=== PATIENT | female | born 1995 ===

== ENCOUNTER 2017-01-08 21:28 | Emergency (ER) | payer MEDICAID ==
[2017-01-08 21:45] VITALS: BP 125/78; PULSE 88; RESP 20; TEMP 98.2; O2SAT 99
--- NOTE | 2017-01-08 23:27 | ED PDOC ---
HPI: Back Time Seen by Provider: 01/08/17 21:57 Chief Complaint (Nursing): Back Pain Chief Complaint (Provider): Left lower back pain x 2 days History Per: Patient History/Exam Limitations: no limitations Onset/Duration Of Symptoms: Days Current Symptoms Are (Timing): Still Present Quality Of Discomfort: Sharp (with movement ), Dull Additional Complaint(s): Pt states it gradually began after livnig heavy object. Pt states she took motrin yesterday which helped the pain. PT states she was going to take more today but her mother brought her to the Er for evaluation. No numbness/ tingling. No bladder or bowel incontinence. No fever/chills. Past Medical History Vital Signs: Last Vital Signs Temp 98.2 F 01/08/17 21:40 Pulse 88 01/08/17 21:40 Resp 20 01/08/17 21:40 BP 125/78 01/08/17 21:40 Pulse Ox 99 01/08/17 21:40 - Medical History PMH: Asthma - Surgical History Surgical History: Appendectomy - Family History Family History: States: Unknown Family Hx - Living Arrangements Living Arrangements: With Family - Social History Current smoker - smoking cessation education provided: No Alcohol: None Drugs: Denies - Home Medications Home Medications: Ambulatory Orders Medication Instructions Recorded Montelukast Sodium [Singulair] 10 mg PO DAILY #20 tab 02/28/13 predniSONE [predniSONE Tab] 20 mg PO BID #10 tab 02/28/13 Naproxen [Naprosyn Tab] 375 mg PO Q8 PRN #15 tab 04/15/16 oxyCODONE/Acetaminophen [Percocet 1 ea PO Q6 PRN #4 tab 04/15/16 5/325 mg Tab] Nitrofurantoin Macrocrystals 100 mg PO BID #13 cap 05/17/16 [Macrobid] Phenazopyridine [Pyridium] 200 mg PO TID #5 tab 05/17/16 Cyclobenzaprine [Cyclobenzaprine 10 mg PO Q8H PRN #12 tab 01/08/17 HCl] Ibuprofen [Motrin Tab] 800 mg PO Q6H PRN #20 tab 01/08/17 - Allergies Allergies/Adverse Reactions: Allergies Allergy/AdvReac Type Severity Reaction Status Date / Time FISH Allergy RASH Verified 01/08/17 21:40 Review of Systems ROS Statement: Except As Marked, All Systems Reviewed And Found Negative Constitutional: Negative for: Fever, Chills Gastrointestinal: Negative for: Nausea, Vomiting Genitourinary Female: Negative for: Dysuria Physical Exam - Reviewed Nursing Documentation Reviewed: Yes Vital Signs Reviewed: Yes - Physical Exam Appears: Positive for: Well, Non-toxic, No Acute Distress Head Exam: Positive for: ATRAUMATIC, NORMAL INSPECTION, NORMOCEPHALIC Skin: Positive for: Normal Color, Warm, DRY Eye Exam: Positive for: Normal appearance ENT: Positive for: Normal ENT Inspection Neck: Positive for: Normal, Painless ROM Cardiovascular/Chest: Positive for: Regular Rate, Rhythm Respiratory: Positive for: Normal Breath Sounds. Negative for: Accessory Muscle Use, Respiratory Distress Gastrointestinal/Abdominal: Positive for: Normal Exam, Bowel Sounds, Soft. Negative for: Tenderness Back: Positive for: Normal Inspection Extremity: Positive for: Normal ROM Neurologic/Psych: Positive for: Alert, Oriented - ECG O2 Sat by Pulse Oximetry: 99 Medical Decision Making Medical Decision Making: Pt reports feeling better on re-evaluation. Disposition - Clinical Impression Clinical Impression: Back pain - Patient ED Disposition Is Patient to be Admitted: No Counseled Patient/Family Regarding: Diagnosis, Need For Followup, Rx Given - Disposition Disposition: Routine/Home Disposition Time: 23:27 Condition: GOOD Prescriptions: Cyclobenzaprine [Cyclobenzaprine HCl] 10 mg PO Q8H PRN #12 tab PRN Reason: Muscle Spasm Ibuprofen [Motrin Tab] 800 mg PO Q6H PRN #20 tab PRN Reason: Pain Instructions: Acute Low Back Pain (ED) Forms: [employer] (Hungarian)
== END 2017-01-08 23:43 | disposition home or self-care (01) ==
LOC: H.ER 21:28
DX: M54.5 Low back pain (principal)

== ENCOUNTER 2017-02-25 00:23 | Emergency (ER) | payer MEDICAID ==
[2017-02-25 00:38] VITALS: TEMP 98.9; O2SAT 100
[2017-02-25] MEDS ORDERED: Sodium Chloride 0.9% 1,000 ML IV STA (01:29)
--- NOTE | 2017-02-25 01:32 | ED PDOC ---
HPI: Abdomen Time Seen by Provider: 02/25/17 00:39 Chief Complaint (Nursing): Abdominal Pain Chief Complaint (Provider): Abdominal Pain History Per: Patient History/Exam Limitations: no limitations Onset/Duration Of Symptoms: Hrs (x5) Current Symptoms Are (Timing): Still Present Context: Food Additional Complaint(s): Bonnie is a 21 y/o female who presents to the ED complaining of abdominal pain associated with diarrhea, onset this evening. She reports eating sausages around 9:30PM and developed symptoms shortly thereafter. Patient denies nausea, vomiting, dysuria, frequency, and incontinence. She describes the diarrhea as watery, without mucus or blood. PMD: None Past Medical History Reviewed: Historical Data, Nursing Documentation, Vital Signs Vital Signs: Last Vital Signs Temp 98.9 F 02/25/17 00:35 Pulse 91 H 02/25/17 01:24 Resp 16 02/25/17 01:24 BP 124/76 02/25/17 01:54 Pulse Ox 100 02/25/17 03:44 - Medical History PMH: Asthma - Surgical History Surgical History: Appendectomy - Family History Family History: States: Unknown Family Hx - Home Medications Home Medications: Ambulatory Orders Medication Instructions Recorded Montelukast Sodium [Singulair] 10 mg PO DAILY #20 tab 02/28/13 predniSONE [predniSONE Tab] 20 mg PO BID #10 tab 02/28/13 Naproxen [Naprosyn Tab] 375 mg PO Q8 PRN #15 tab 04/15/16 oxyCODONE/Acetaminophen [Percocet 1 ea PO Q6 PRN #4 tab 04/15/16 5/325 mg Tab] Nitrofurantoin Macrocrystals 100 mg PO BID #13 cap 05/17/16 [Macrobid] Phenazopyridine [Pyridium] 200 mg PO TID #5 tab 05/17/16 Cyclobenzaprine [Cyclobenzaprine 10 mg PO Q8H PRN #12 tab 01/08/17 HCl] Ibuprofen [Motrin Tab] 800 mg PO Q6H PRN #20 tab 01/08/17 Dicyclomine [Dicyclomine HCl] 10 mg PO TID PRN #15 cap 02/25/17 - Allergies Allergies/Adverse Reactions: Allergies Allergy/AdvReac Type Severity Reaction Status Date / Time FISH Allergy RASH Verified 02/25/17 00:35 Review of Systems ROS Statement: Except As Marked, All Systems Reviewed And Found Negative Gastrointestinal: Positive for: Abdominal Pain, Diarrhea. Negative for: Nausea , Vomiting Genitourinary Female: Negative for: Dysuria, Frequency, Incontinence Physical Exam - Reviewed Nursing Documentation Reviewed: Yes Vital Signs Reviewed: Yes - Physical Exam Appears: Positive for: Non-toxic, No Acute Distress Head Exam: Positive for: ATRAUMATIC, NORMAL INSPECTION, NORMOCEPHALIC Skin: Positive for: Normal Color, Warm, Dry Eye Exam: Positive for: EOMI, Normal appearance, PERRL Neck: Positive for: Normal, Supple Cardiovascular/Chest: Positive for: Tachycardia. Negative for: Murmur Respiratory: Positive for: Normal Breath Sounds. Negative for: Accessory Muscle Use, Respiratory Distress Gastrointestinal/Abdominal: Positive for: Soft, Tenderness (umbilical and lower abdominal tenderness to palpation) Extremity: Positive for: Normal ROM. Negative for: Pedal Edema, Deformity Neurologic/Psych: Positive for: Alert, Oriented - Laboratory Results Result Diagrams: 02/25/17 01:51 02/25/17 01:51 - ECG O2 Sat by Pulse Oximetry: 100 (RA) Pulse Ox Interpretation: Normal Medical Decision Making Medical Decision Making: Time: 1:27 Initial Plan: --CMP --Lipase --CBC --Urine dipstick --NS IV 1000 ml at 1000 mls/hr --Bentyl 10 mg PO --Zofran 4 mg IV --Pending reevaluation Time: 3:41 --Upon reevaluation, patient reports marked improvement in symptoms. She has no diarrhea or pain in the ED. Patient is medically stable and will be discharged home with a prescription for dicyclomine. Counseling was provided and all questions were answered regarding diagnosis and need for follow up with PMD in 2-3 days. There is agreement to discharge plan. Return if symptoms persist or worsen. Clinical Impression: Diarrhea, abdominal pain Scribe Attestation: Documented by Charis Dean, acting as a scribe for Marc Díaz MD Provider Scribe Attestation: All medical record entries made by the Scribe were at my direction and personally dictated by me. I have reviewed the chart and agree that the record accurately reflects my personal performance of the history, physical exam, medical decision making, and the department course for this patient. I have also personally directed, reviewed, and agree with the discharge instructions and disposition. Disposition - Clinical Impression Clinical Impression: Abdominal pain, Diarrhea - Patient ED Disposition Is Patient to be Admitted: No Doctor Will See Patient In The: Office Counseled Patient/Family Regarding: Studies Performed, Diagnosis, Need For Followup, Rx Given - Disposition Referrals: [facility] [Outside] Disposition: Routine/Home Disposition Time: 03:42 Condition: GOOD Additional Instructions: Return for worsening. Follow up with your PCP in 2-3 days. Prescriptions: Dicyclomine [Dicyclomine HCl] 10 mg PO TID PRN #15 cap PRN Reason: Diarrhea Instructions: Acute Diarrhea (ED), Abdominal Pain (ED)
[2017-02-25 01:53] VITALS: PULSE 91; RESP 16
[2017-02-25 01:54] VITALS: BP 124/76
[2017-02-25 01:54] LABS: BASO # 0.1 K/uL (0.0-0.2); BASO % 0.5 % (0.0-2.0); EOS # 0.1 K/uL (0.0-0.7); EOS % 0.5 % (0.0-4.0); HEMATOCRIT 41.1 % (34.0-47.0); LYMPH # 3.1 K/uL (1.0-4.3); LYMPH % 27.6 % (20.0-40.0); MEAN CELL VOLUME 87.3 fl (81.0-99.0); MEAN CORPUSCULAR HEMOGLOBIN 28.8 pg (27.0-31.0); MEAN CORPUSCULAR HGB CONC 32.9 g/dL (33.0-37.0); MEAN PLATELET VOLUME 8.6 fl (7.2-11.7); MONO # 0.9 K/uL (0.0-0.8); MONO % 7.6 % (0.0-10.0); NEUT # 7.2 K/uL (1.8-7.0); NEUT % 63.8 % (50.0-75.0); RED CELL DISTRIBUTION WIDTH 13.2 % (11.5-14.5); WHITE BLOOD COUNT 11.2 K/uL (4.8-10.8)
[2017-02-25 02:02] LABS: ALB/GLOB RATIO 1.3 (1.0-2.1); ALKALINE PHOSPHATASE 113 U/L (38-126); ALT/SGPT 22 U/L (9-52); AST/SGOT 21 U/L (14-36); BILIRUBIN,TOTAL 0.4 mg/dl (0.2-1.3); BLOOD UREA NITROGEN 12 mg/dl (7-17); CALCIUM 9.7 mg/dL (8.4-10.2); CARBON DIOXIDE 25 mmol/L (22-30); CHLORIDE 102 mmol/L (98-107); GFR AFRICAN-AMERICAN > 60; GLUCOSE,RANDOM 107 mg/dL (65-105); LIPASE 112 U/L (23-300); POTASSIUM 3.8 MMOL/L (3.6-5.0); SODIUM 144 mmol/l (132-148); TOTAL PROTEIN 7.7 G/DL (6.3-8.2)
== END 2017-02-25 03:55 | disposition home or self-care (01) ==
LOC: H.ER 00:23
DX: R10.9 Unspecified abdominal pain (principal); R19.7 Diarrhea, unspecified
CPT/HCPCS: 80053; 81025; 83690; 85025; 96360; 99283; J7040

== ENCOUNTER 2017-10-14 02:35 | Emergency (ER) | payer MEDICAID ==
[2017-10-14 02:47] VITALS: TEMP 97.9
--- NOTE | 2017-10-14 02:52 | ED PDOC ---
HPI: CCC, URI, Sore Throat <Luis Enrique Hernandez - Last Filed: 10/14/17 04:20> <Simon Shields - Last Filed: 10/14/17 04:34> Chief Complaint (Nursing): ENT Problem Additional Complaint(s): 22 yo female who presents to the ED complaining of bilateral ear pain since 2 days ago associated with runny nose and watery eyes. Patient states URI symptoms and fever last week, reports mom and dad are also sick. Patient also reports some decreased hearing L side worse than right. Otherwise patient denies fever at this time, nausea, vomiting, no otorrhea, ringing. No recent injury on trauma on ears. (Luis Enrique Hernandez) Supervising Attending Note - Supervising Attending Note The Documented history was done by the: Physician Shift Production Associate - Attestation: I have personally seen and examined this patient.: Yes I have fully participated in the care of the patient.: Yes I have reviewed all pertinent clinical information, including history, physical exam and plan: Yes <Simon Shields - Last Filed: 10/14/17 04:34> Past Medical History - Medical History PMH: Asthma - Surgical History Surgical History: Appendectomy - Family History Family History: States: Unknown Family Hx <Luis Enrique Hernandez - Last Filed: 10/14/17 04:20> <Simon Shields - Last Filed: 10/14/17 04:34> Vital Signs: Last Vital Signs Temp 97.9 F 10/14/17 04:21 Pulse 68 10/14/17 04:21 Resp 14 10/14/17 04:21 BP 131/62 10/14/17 04:21 Pulse Ox 99 10/14/17 04:21 - Home Medications Home Medications: Ambulatory Orders Medication Instructions Recorded Montelukast Sodium [Singulair] 10 mg PO DAILY #20 tab 02/28/13 predniSONE [predniSONE Tab] 20 mg PO BID #10 tab 02/28/13 Naproxen [Naprosyn Tab] 375 mg PO Q8 PRN #15 tab 04/15/16 oxyCODONE/Acetaminophen [Percocet 1 ea PO Q6 PRN #4 tab 04/15/16 5/325 mg Tab] Nitrofurantoin Macrocrystals 100 mg PO BID #13 cap 05/17/16 [Macrobid] Phenazopyridine [Pyridium] 200 mg PO TID #5 tab 05/17/16 Cyclobenzaprine [Cyclobenzaprine 10 mg PO Q8H PRN #12 tab 01/08/17 HCl] Ibuprofen [Motrin Tab] 800 mg PO Q6H PRN #20 tab 01/08/17 Dicyclomine [Dicyclomine HCl] 10 mg PO TID PRN #15 cap 02/25/17 Amoxicillin [Amoxil 500 mg Cap] 500 mg PO Q8 5 Days #15 cap 10/14/17 - Allergies Allergies/Adverse Reactions: Allergies Allergy/AdvReac Type Severity Reaction Status Date / Time pollen extracts Allergy ITCHING Verified 10/14/17 02:47 Review of Systems ROS Statement: Except As Marked, All Systems Reviewed And Found Negative <Luis Enrique Hernandez - Last Filed: 10/14/17 04:20> Physical Exam - Reviewed Nursing Documentation Reviewed: Yes Vital Signs Reviewed: Yes - Physical Exam Head Exam: Positive for: NORMAL INSPECTION Eye Exam: Positive for: Normal appearance ENT: Positive for: TM Is/Are (R TM ray, bulging, L dificult to visualize lot of wax). Negative for: Pharyngeal Erythema, Tonsillar Exudate, Tonsillar Swelling Neck: Positive for: Supple (No LAD.) Cardiovascular/Chest: Positive for: Regular Rate, Rhythm. Negative for: Murmur Respiratory: Positive for: Normal Breath Sounds. Negative for: Rhonchi, Wheezing Gastrointestinal/Abdominal: Positive for: Normal Exam Neurologic/Psych: Positive for: Alert, electric mule operator II-XII, Oriented <Luis Enrique Hernandez - Last Filed: 10/14/17 04:20> - ECG O2 Sat by Pulse Oximetry: 98 <Luis Enrique Hernandez - Last Filed: 10/14/17 04:20> <Simon Shields - Last Filed: 10/14/17 04:34> - Progress ED Course And Treament: Toradol 30mg IM Influenza serology Rapid strept test Reeval. 0345: patient feels better. Influenza negative Rapid strep negative. Dispo d/c home. (Luis Enrique Hernandez) Disposition - Patient ED Disposition Is Patient to be Admitted: No - Disposition Disposition: Routine/Home Disposition Time: 03:26 <Luis Enrique Hernandez - Last Filed: 10/14/17 04:20> <Simon Shields - Last Filed: 10/14/17 04:34> - Clinical Impression Clinical Impression: Otitis media - Disposition Condition: STABLE Additional Instructions: f/u with PCP in 2-3 days. ER precautions reviewed. Amoxicilin 500 mg PO q8h x 5 days. Avoid alcohol during treatment Prescriptions: Amoxicillin [Amoxil 500 mg Cap] 500 mg PO Q8 5 Days #15 cap Instructions: Ear Infections (Otitis Media) Forms: [facility] (Zambian) Print Language: SERBIAN
[2017-10-14 04:22] VITALS: BP 131/62; PULSE 68; RESP 14; O2SAT 99
== END 2017-10-14 04:26 | disposition home or self-care (01) ==
LOC: H.ER 02:35
DX: H66.90 Otitis media, unspecified, unspecified ear (principal); J45.909 Unspecified asthma, uncomplicated
CPT/HCPCS: 81025; 87070; 87430; 87804; 96372; 99283; J1885

== ENCOUNTER 2018-01-02 23:12 | Emergency (ER) | payer MEDICAID ==
[2018-01-02 23:28] VITALS: O2SAT 100
--- NOTE | 2018-01-03 01:01 | ED PDOC ---
HPI: General Adult Time Seen by Provider: 01/03/18 00:28 Chief Complaint (Nursing): Medical Clearance Chief Complaint (Provider): insomnia History Per: Patient History/Exam Limitations: no limitations Onset/Duration Of Symptoms: Days (2) Additional Complaint(s): 22 y/o female presents for evaluation of insomnia x 2 days. Patient states she will fall asleep for an hour and then wake up. Patient tearful, states she has a lot of stressors at home and is in a "bad" relationship. Patient also reports decreased appetite and states since she hasn't slept she also has body pain, none at present. Denies fever, headache, dizziness, nausea/vomiting, chest pain, shortness of breath, palpitations, abdominal pain, suicidal/ homicidal ideations. Past Medical History Vital Signs: Last Vital Signs Temp 98.1 F 01/02/18 23:26 Pulse 70 01/02/18 23:26 Resp 17 01/02/18 23:26 BP 127/85 01/02/18 23:26 Pulse Ox 100 01/03/18 01:01 - Medical History PMH: Asthma - Surgical History Surgical History: Appendectomy - Family History Family History: States: Unknown Family Hx - Living Arrangements Living Arrangements: With Family - Social History Current smoker - smoking cessation education provided: No Alcohol: None Drugs: Denies - Home Medications Home Medications: Ambulatory Orders Medication Instructions Recorded Montelukast Sodium [Singulair] 10 mg PO DAILY #20 tab 02/28/13 predniSONE [predniSONE Tab] 20 mg PO BID #10 tab 02/28/13 Naproxen [Naprosyn Tab] 375 mg PO Q8 PRN #15 tab 04/15/16 oxyCODONE/Acetaminophen [Percocet 1 ea PO Q6 PRN #4 tab 04/15/16 5/325 mg Tab] Nitrofurantoin Macrocrystals 100 mg PO BID #13 cap 05/17/16 [Macrobid] Phenazopyridine [Pyridium] 200 mg PO TID #5 tab 05/17/16 Cyclobenzaprine [Cyclobenzaprine 10 mg PO Q8H PRN #12 tab 01/08/17 HCl] Ibuprofen [Motrin Tab] 800 mg PO Q6H PRN #20 tab 01/08/17 Dicyclomine [Dicyclomine HCl] 10 mg PO TID PRN #15 cap 10/01/17 Amoxicillin [Amoxil 500 mg Cap] 500 mg PO Q8 5 Days #15 cap 10/14/17 - Allergies Allergies/Adverse Reactions: Allergies Allergy/AdvReac Type Severity Reaction Status Date / Time pollen extracts Allergy ITCHING Verified 10/14/17 02:47 Review of Systems ROS Statement: Except As Marked, All Systems Reviewed And Found Negative Psych: Positive for: Other (insomnia) Physical Exam - Reviewed Nursing Documentation Reviewed: Yes Vital Signs Reviewed: Yes - Physical Exam Appears: Positive for: Well, Non-toxic, Uncomfortable (tearful) Head Exam: Positive for: ATRAUMATIC, NORMAL INSPECTION, NORMOCEPHALIC Skin: Positive for: Normal Color Eye Exam: Positive for: Normal appearance ENT: Positive for: Normal ENT Inspection Cardiovascular/Chest: Positive for: Regular Rate, Rhythm Respiratory: Positive for: Normal Breath Sounds Gastrointestinal/Abdominal: Positive for: Normal Exam Back: Positive for: Normal Inspection Extremity: Positive for: Normal ROM Neurologic/Psych: Positive for: Alert, Oriented (x3) - ECG O2 Sat by Pulse Oximetry: 100 - Progress ED Course And Treament: Patient evaluated by general lithographic worker; does not meet criteria for admission at this time Information for outpatient services given Advised patient trial Benadryl, Melatonin for symptoms Follow up outpatient therapy Return precautions given Disposition - Clinical Impression Clinical Impression: Adjustment disorder with depressed mood, Lack of adequate sleep - Patient ED Disposition Is Patient to be Admitted: No Counseled Patient/Family Regarding: Diagnosis, Need For Followup - Disposition Disposition: Routine/Home Disposition Time: 01:30 Condition: STABLE Instructions: Adjustment Disorder, Insomnia
[2018-01-03 02:07] VITALS: BP 122/79; PULSE 81; RESP 16; TEMP 98
== END 2018-01-03 01:50 | disposition home or self-care (01) ==
LOC: H.ER 23:12
DX: F43.21 Adjustment disorder with depressed mood (principal); Z72.820 Sleep deprivation

== ENCOUNTER 2018-02-07 00:31 | Emergency (ER) | payer MEDICAID ==
[2018-02-07 00:46] VITALS: RESP 18
[2018-02-07] MEDS ORDERED: Promethazine/Cod 6.25mg-10mg/5ml Syr UD PO STA (01:09)
--- NOTE | 2018-02-07 01:22 | ED PDOC ---
HPI: CCC, URI, Sore Throat Time Seen by Provider: 02/07/18 00:51 Chief Complaint (Nursing): ENT Problem Chief Complaint (Provider): right ear pain and sore throat History Per: Patient History/Exam Limitations: no limitations Onset/Duration Of Symptoms: Days (x1) Current Symptoms Are (Timing): Still Present Location Of Pain: Ear(s) (Right), Throat Associated Symptoms: Sore Throat, Cough. denies: Fever, Chills, Nausea, Vomiting Ear Symptoms: Right: Ear Pain Additional Complaint(s): Sandra Abel is a 22 year old female, with no significant past medical history, who presents to the emergency department complaining of right ear pain and sore throat ongoing for x1 day. Patient states she took NyQuil yesterday afternoon with no relief of symptoms. She also reports a cough but denies any nausea, vomit, shortness of breath, fever or chills. No further medical complaints. PMD: Radha Quinteros Past Medical History Reviewed: Historical Data, Nursing Documentation, Vital Signs Vital Signs: Last Vital Signs Temp 98.2 F 02/07/18 00:43 Pulse 80 02/07/18 00:43 Resp 18 02/07/18 00:43 BP 124/81 02/07/18 00:43 Pulse Ox 99 02/07/18 02:34 - Medical History PMH: Asthma Denies: Diabetes, Hepatitis, HIV, HTN, Seizures, Sexually Transmitted Disease - Surgical History Surgical History: Appendectomy - Family History Family History: States: Unknown Family Hx - Social History Current smoker - smoking cessation education provided: No Alcohol: None Drugs: Denies - Home Medications Home Medications: Ambulatory Orders Medication Instructions Recorded Montelukast Sodium [Singulair] 10 mg PO DAILY #20 tab 02/28/13 predniSONE [predniSONE Tab] 20 mg PO BID #10 tab 02/28/13 Naproxen [Naprosyn Tab] 375 mg PO Q8 PRN #15 tab 04/15/16 oxyCODONE/Acetaminophen [Percocet 1 ea PO Q6 PRN #4 tab 04/15/16 5/325 mg Tab] Nitrofurantoin Macrocrystals 100 mg PO BID #13 cap 05/17/16 [Macrobid] Phenazopyridine [Pyridium] 200 mg PO TID #5 tab 05/17/16 Cyclobenzaprine [Cyclobenzaprine 10 mg PO Q8H PRN #12 tab 01/08/17 HCl] Ibuprofen [Motrin Tab] 800 mg PO Q6H PRN #20 tab 01/08/17 Dicyclomine [Dicyclomine HCl] 10 mg PO TID PRN #15 cap 02/25/17 Amoxicillin [Amoxil 500 mg Cap] 500 mg PO Q8 5 Days #15 cap 10/14/17 Benzonatate [Tessalon Perle] 100 mg PO TID PRN #15 capsule 02/07/18 - Allergies Allergies/Adverse Reactions: Allergies Allergy/AdvReac Type Severity Reaction Status Date / Time pollen extracts Allergy ITCHING Verified 10/14/17 02:47 Review of Systems ROS Statement: Except As Marked, All Systems Reviewed And Found Negative Constitutional: Negative for: Fever, Chills ENT: Positive for: Ear Pain (right), Throat Pain Respiratory: Positive for: Cough. Negative for: Shortness of Breath Gastrointestinal: Negative for: Nausea, Vomiting Physical Exam - Reviewed Nursing Documentation Reviewed: Yes Vital Signs Reviewed: Yes - Physical Exam Appears: Positive for: Uncomfortable Head Exam: Positive for: ATRAUMATIC, NORMAL INSPECTION, NORMOCEPHALIC Skin: Positive for: Normal Color, Warm, Dry Eye Exam: Positive for: Normal appearance, EOMI, PERRL ENT: Positive for: Pharynx Is (erythematous), TM Is/Are (normal bilaterally) Neck: Positive for: Painless ROM Cardiovascular/Chest: Positive for: Regular Rate, Rhythm. Negative for: Murmur Respiratory: Positive for: Normal Breath Sounds. Negative for: Respiratory Distress Gastrointestinal/Abdominal: Positive for: Normal Exam, Soft. Negative for: Tenderness Back: Positive for: Normal Inspection Extremity: Positive for: Normal ROM (upper and lower extremities). Negative for : Deformity, Swelling Neurologic/Psych: Positive for: Alert, Oriented - ECG O2 Sat by Pulse Oximetry: 99 (RA) Pulse Ox Interpretation: Normal Medical Decision Making Medical Decision Making: Time: 00:51 Initial Impression: 22 y/o female with pharyngitis. Initial Plan: --Urine --Urine dipstick --Promethazine/Codeine 10 ml PO --Influenza A B --Rapid Strep Group A Antigen --Reevaluation 02:25 -Fu and strep negative. 02:30 -Patient reports improvement of symptoms and is medically stable for discharge. Diagnosis of viral pharyngitis. Patient will be discharged home with Rx for Benzonatate PO. Counseling was provided and all questions were answered regarding diagnosis and need for follow up with PMD. There is agreement to discharge plan. Return if symptoms persist or worsen. ----- Scribe Attestation: Documented by Danis Hsieh, acting as a scribe for Simon Shields MD. Provider Scribe Attestation: All medical record entries made by the Scribe were at my direction and personally dictated by me. I have reviewed the chart and agree that the record accurately reflects my personal performance of the history, physical exam, medical decision making, and the department course for this patient. I have also personally directed, reviewed, and agree with the discharge instructions and disposition. Disposition - Clinical Impression Clinical Impression: Pharyngitis - Disposition Referrals: Radha Irby MD [Primary Care Provider] - Disposition: Routine/Home Disposition Time: 02:30 Condition: STABLE Additional Instructions: SANDRA ABEL, thank you for letting us take care of you today. Your provider was Simon Shields MD and you were treated for FEVER, RIGHT EAR PAIN. The emergency medical care you received today was directed at your acute symptoms. If you were prescribed any medication, please fill it and take as directed. It may take several days for your symptoms to resolve. Return to the Emergency Department if your symptoms worsen, do not improve, or if you have any other problems. Please contact your doctor or call one of the physicians/clinics you have been referred to that are listed on the Patient Visit Information form that is included in your discharge packet. Bring any paperwork you were given at discharge with you along with any medications you are taking to your follow up visit. Our treatment cannot replace ongoing medical care by a primary care provider outside of the emergency department. Thank you for allowing the [facility] team to be part of your care today. If you had a blood, urine, or wound culture: It will take several days for the results, if any change in treatment is needed we will contact you. Prescriptions: Benzonatate [Tessalon Perle] 100 mg PO TID PRN #15 capsule PRN Reason: Cough Instructions: Viral Pharyngitis Forms: [employer] (Czech), [facility] ED School/Work Excuse
[2018-02-07] MEDS ORDERED: Promethazine/Cod 6.25mg-10mg/5ml Syr UD ONE (01:30)
[2018-02-07 02:41] VITALS: BP 127/55; PULSE 77; TEMP 98; O2SAT 100
== END 2018-02-07 02:42 | disposition home or self-care (01) ==
LOC: H.ER 00:31
DX: J02.9 Acute pharyngitis, unspecified (principal); H92.01 Otalgia, right ear; R05 Cough

== ENCOUNTER 2018-08-26 11:15 | Emergency (ER) | payer MEDICAID ==
--- NOTE | 2018-08-26 13:41 | ED PDOC ---
HPI: Abdomen Time Seen by Provider: 08/26/18 13:00 Chief Complaint (Provider): Abdominal pain History Per: Patient History/Exam Limitations: no limitations Onset/Duration Of Symptoms: Days, Gradual, Worse Since (yesterday) Current Symptoms Are (Timing): Still Present Location Of Pain/Discomfort: RUQ, RLQ Quality Of Discomfort: "Pain" Associated Symptoms: Nausea. denies: Fever, Chills, Vomiting, Diarrhea, Back Pain, Chest Pain, Urinary Symptoms Additional History Per: Patient Additional Complaint(s): 22yo female, otherwise well, comes to ER reporting right sided abdominal pain, worse since last night. She states she tripped and fell 3 days ago, and landed flat on her stomach. She reports the pain has been present since then, was improving, but then worsened last night, prompting ER visit. She reports associated nausea and states the pain is worse with walking. She denies any head injury, urinary symptoms, back pain, chest pain, or other complaints. PMD: Dr. Irby Abnormal Vaginal Bleeding: No Last Menstral Period: 3 weeks ago Past Medical History Reviewed: Historical Data, Nursing Documentation, Vital Signs - Medical History PMH: Asthma Denies: Diabetes, Hepatitis, HIV, HTN, Seizures, Sexually Transmitted Disease - Surgical History Surgical History: Appendectomy - Family History Family History: States: Unknown Family Hx - Home Medications Home Medications: Ambulatory Orders Medication Instructions Recorded Montelukast Sodium [Singulair] 10 mg PO DAILY #20 tab 02/28/13 predniSONE [predniSONE Tab] 20 mg PO BID #10 tab 02/28/13 Naproxen [Naprosyn Tab] 375 mg PO Q8 PRN #15 tab 04/15/16 oxyCODONE/Acetaminophen [Percocet 1 ea PO Q6 PRN #4 tab 04/15/16 5/325 mg Tab] Nitrofurantoin Macrocrystals 100 mg PO BID #13 cap 05/17/16 [Macrobid] Phenazopyridine [Pyridium] 200 mg PO TID #5 tab 05/17/16 Cyclobenzaprine [Cyclobenzaprine 10 mg PO Q8H PRN #12 tab 01/08/17 HCl] Ibuprofen [Motrin Tab] 800 mg PO Q6H PRN #20 tab 01/08/17 Dicyclomine [Dicyclomine HCl] 10 mg PO TID PRN #15 cap 02/25/17 Amoxicillin [Amoxil 500 mg Cap] 500 mg PO Q8 5 Days #15 cap 10/14/17 Benzonatate [Tessalon Perle] 100 mg PO TID PRN #15 capsule 02/07/18 Ibuprofen [Ibu] 400 mg PO Q4 PRN #20 tablet 08/26/18 - Allergies Allergies/Adverse Reactions: Allergies Allergy/AdvReac Type Severity Reaction Status Date / Time pollen extracts Allergy ITCHING Verified 10/14/17 02:47 Review of Systems ROS Statement: Except As Marked, All Systems Reviewed And Found Negative Constitutional: Negative for: Fever, Chills Cardiovascular: Negative for: Chest Pain Gastrointestinal: Positive for: Nausea, Abdominal Pain. Negative for: Vomiting, Diarrhea Genitourinary Female: Negative for: Dysuria, Frequency, Hematuria Musculoskeletal: Negative for: Back Pain Physical Exam - Reviewed Nursing Documentation Reviewed: Yes Vital Signs Reviewed: Yes - Physical Exam Comments: GENERAL APPEARANCE: Patient is awake, alert, oriented x 3, in mild painful distress. SKIN: Warm, dry; (-) cyanosis. HEAD: atraumatic EYES: (-) conjunctival pallor, (-) scleral icterus. ENMT: Mucous membranes moist. NECK: (-) tenderness, (-) stiffness, (-) lymphadenopathy. CHEST AND RESPIRATORY: (-) rales, (-) rhonchi, (-) wheezes; breath sounds equal bilaterally. HEART AND CARDIOVASCULAR: (-) irregularity; (-) murmur, (-) gallop. ABDOMEN AND GI: (-) distention. Bowel sounds active; [+] tenderness in mid right abdomen (-) guarding, (-) rebound, (-) palpable masses (-)ecchymosis Linear scar noted to right lower quadrant. BACK: (-) CVA tenderness. (-) Midline spinal tenderness. (-) Paraspinal tenderness. (+) Full ROM of back EXTREMITIES: (-) deformity, (-) edema, (+) distal pulses (-)reproducible tenderness NEURO AND PSYCH: Mental status as above; (-) focal findings. - Laboratory Results Result Diagrams: 08/26/18 14:00 08/26/18 14:00 Medical Decision Making Medical Decision Making: Right sided abdominal pain Plan: -- Labs -- CT Abdomen/Pelvis w/ IV Contrast 1632 CT Abdomen/Pelvis FINDINGS: LOWER THORAX: Unremarkable. LIVER: Unremarkable. No gross lesion or ductal dilatation. GALLBLADDER AND BILE DUCTS: Unremarkable. PANCREAS: Unremarkable. No gross lesion or ductal dilatation. SPLEEN: Unremarkable. ADRENALS: Unremarkable. No mass. KIDNEYS AND URETERS: Unremarkable. No hydronephrosis. No solid mass. VASCULATURE: Unremarkable. No aortic aneurysm. No aortic atherosclerotic calcification or mural plaque present. BOWEL: Unremarkable. No obstruction. No gross mural thickening. APPENDIX: The appendix not identified and surgical clip is seen at the cecal base suggesting prior appendectomy. Clinically correlate. PERITONEUM: Unremarkable. No free fluid. No free air. LYMPH NODES: Unremarkable. No enlarged lymph nodes. BLADDER: Unremarkable. REPRODUCTIVE: In the interval, there is a 3.3 cm right adnexal cyst with the left adnexal compartment unremarkable appearing. BONES: No acute fracture. OTHER FINDINGS: None. IMPRESSION: 1. Both posttraumatic sequelae appreciated in the abdomen or pelvis. No fracture identified. No hemoperitoneum. 2. Mild hepatic steatosis suggested. 3. Interval 3.3 cm right adnexal cyst. 4. Likely prior appendectomy. Clinically correlate. On reassessment, patient reports some improvement in pain. abdomen is soft and non tender. Patient informed of CT findings and expresses understanding. Patient is stable for discharge home, instructed to take Motrin/Tylenol as needed for pain. Patient instructed to follow up with PMD in 2-3 days; return precautions given. Scribe Attestation: Documented by Esme Gibbs, acting as a scribe for CARLOS Clement. Provider Scribe Attestation: All medical record entries made by the Scribe were at my direction and personally dictated by me. I have reviewed the chart and agree that the record accurately reflects my personal performance of the history, physical exam, medical decision making, and the department course for this patient. I have also personally directed, reviewed, and agree with the discharge instructions and disposition. Disposition - Clinical Impression Clinical Impression: Abdominal tenderness, Fall from slip, trip, or stumble, Cyst of ovary, right - Patient ED Disposition Is Patient to be Admitted: No Counseled Patient/Family Regarding: Studies Performed, Diagnosis, Need For Followup, Rx Given - Disposition Referrals: Radha Irby MD [Primary Care Provider] - Disposition: Routine/Home Disposition Time: 16:34 Condition: IMPROVED Additional Instructions: Return to ED for new or worsening symptoms, fever >100.4, increasing pain, urinary symptoms, vomiting. FOllow up with your primary care doctor in 3-5 days. Take medications as prescribed Prescriptions: Ibuprofen [Ibu] 400 mg PO Q4 PRN #20 tablet PRN Reason: Pain, Moderate (4-7) Instructions: Ovarian Cysts, Acute Abdomen (Belly Pain), Adult (DC) Forms: [employer] (Telugu), [facility] ED School/Work Excuse Print Language: CROATIAN - POA Present On Arrival: None
[2018-08-26 14:30] VITALS: BMI 28.9
[2018-08-26 14:36] LABS: BASO # 0.1 K/uL (0.0-0.2); EOS % 0.7 % (0.0-4.0); HEMOGLOBIN 13.7 g/dL (12.0-16.0); LYMPH # 2.2 K/uL (1.0-4.3); LYMPH % 43.6 % (20.0-40.0); MEAN CELL VOLUME 89.3 fl (81.0-99.0); MEAN CORPUSCULAR HEMOGLOBIN 29.9 pg (27.0-31.0); MEAN CORPUSCULAR HGB CONC 33.5 g/dL (33.0-37.0); MEAN PLATELET VOLUME 8.3 fl (7.2-11.7); MONO # 0.3 K/uL (0.0-0.8); NEUT # 2.5 K/uL (1.8-7.0); NEUT % 48.7 % (50.0-75.0); NRBC % 0.1 % (0.0-0.0); RBC 4.59 Mil/uL (3.80-5.20); RED CELL DISTRIBUTION WIDTH 13.2 % (11.5-14.5); WHITE BLOOD COUNT 5.1 K/uL (4.8-10.8)
[2018-08-26 14:44] LABS: ALB/GLOB RATIO 1.2 (1.0-2.1); ALBUMIN 4.4 g/dL (3.5-5.0); ALT/SGPT 18 U/L (9-52); AST/SGOT 27 U/L (14-36); BLOOD UREA NITROGEN 14 mg/dl (7-17); CALCIUM 9.7 mg/dL (8.4-10.2); GFR NON-AFRICAN AMERICAN > 60
[2018-08-26 14:51] LABS: SQUAMOUS EPITHIAL 9 /hpf (0-5); URINE AMORPHOUS SEDIMENT MANY /ul (<OCC); URINE BACTERIA RARE (<OCC); URINE BILIRUBIN NEGATIVE (NEGATIVE); URINE BLOOD NEGATIVE (NEGATIVE); URINE CLARITY TURBID (Clear); URINE COLOR YELLOW (YELLOW); URINE GLUCOSE (UA) NEG (NEGATIVE); URINE LEUKOCYTE ESTERASE NEG Leu/uL (Negative); URINE PROTEIN 30 mg/dL (NEGATIVE); URINE UROBILINOGEN 0.2-1.0 mg/dL (0.2-1.0)
[2018-08-26] MEDS ORDERED: Iohexol 300 100 ML IJ ONE (15:28)
[2018-08-26] MEDS ORDERED: Sodium Chloride 0.9% 50 ML IV ONE (15:29)
--- NOTE | 2018-08-26 16:16 | CT ---
Date of service: 08/26/2018 PROCEDURE: CT Abdomen and Pelvis with contrast HISTORY: trauma COMPARISON: Transvaginal pelvic ultrasound 06/16/2017. TECHNIQUE: Following the intravenous administration of iodinated contrast material, a CT examination of the abdomen and pelvis was performed from the domes of the diaphragms to the symphysis pubis with reformatted datasets provided in axial, sagittal and coronal planes. Oral contrast was not administered as per referring physician request. Contrast dose: Omnipaque 300, 90 cc Radiation dose: Total exam DLP = 538.36 mGy-cm. This CT exam was performed using one or more of the following dose reduction techniques: Automated exposure control, adjustment of the mA and/or kV according to patient size, and/or use of iterative reconstruction technique. FINDINGS: LOWER THORAX: Unremarkable. LIVER: Unremarkable. No gross lesion or ductal dilatation. GALLBLADDER AND BILE DUCTS: Unremarkable. PANCREAS: Unremarkable. No gross lesion or ductal dilatation. SPLEEN: Unremarkable. ADRENALS: Unremarkable. No mass. KIDNEYS AND URETERS: Unremarkable. No hydronephrosis. No solid mass. VASCULATURE: Unremarkable. No aortic aneurysm. No aortic atherosclerotic calcification or mural plaque present. BOWEL: Unremarkable. No obstruction. No gross mural thickening. APPENDIX: The appendix not identified and surgical clip is seen at the cecal base suggesting prior appendectomy. Clinically correlate. PERITONEUM: Unremarkable. No free fluid. No free air. LYMPH NODES: Unremarkable. No enlarged lymph nodes. BLADDER: Unremarkable. REPRODUCTIVE: In the interval, there is a 3.3 cm right adnexal cyst with the left adnexal compartment unremarkable appearing. BONES: No acute fracture. OTHER FINDINGS: None. IMPRESSION: 1. Both posttraumatic sequelae appreciated in the abdomen or pelvis. No fracture identified. No hemoperitoneum. 2. Mild hepatic steatosis suggested. 3. Interval 3.3 cm right adnexal cyst. 4. Likely prior appendectomy. Clinically correlate.
[2018-08-26 17:17] VITALS: BP 110/78; PULSE 80; RESP 20; TEMP 97.7; O2SAT 98
== END 2018-08-26 17:15 | disposition home or self-care (01) ==
LOC: H.EDDOWN 11:15 → H.ER 11:15
DX: R10.9 Unspecified abdominal pain (principal); N83.201 Unspecified ovarian cyst, right side; N83.202 Unspecified ovarian cyst, left side
CPT/HCPCS: 74177; 80053; 81003; 81025; 85025; 99282; Q9967

== ENCOUNTER 2018-09-18 16:03 | Emergency (ER) | payer MEDICAID ==
[2018-09-18 16:03] VITALS: BMI 28.9
[2018-09-18 16:25] VITALS: RESP 16
--- NOTE | 2018-09-18 17:37 | ED PDOC ---
HPI: General Adult Time Seen by Provider: 09/18/18 17:19 Chief Complaint (Nursing): Foreign Body Chief Complaint (Provider): Foreign Body in Throat History Per: Patient History/Exam Limitations: no limitations Onset/Duration Of Symptoms: Mins (prior to arrival) Current Symptoms Are (Timing): Still Present Additional Complaint(s): 22 year old female presents to the ED for evaluation of a possible ingestion of a foreign body. Patient states that a staple may have fallen into her food and she may have ingested it, as she now has a foreign body sensation in her neck / throat. Otherwise, denies shortness of breath and any bleeding from the throat. PMD: Gary Quinteros Past Medical History Reviewed: Historical Data, Nursing Documentation, Vital Signs Vital Signs: Last Vital Signs Temp 98.5 F 09/18/18 16:22 Pulse 75 09/18/18 16:22 Resp 16 09/18/18 16:22 BP 121/85 09/18/18 16:22 Pulse Ox 98 09/18/18 16:22 - Medical History PMH: Asthma Denies: Diabetes, Hepatitis, HIV, HTN, Chronic Kidney Disease, Seizures, Sexually Transmitted Disease - Surgical History Surgical History: Appendectomy - Family History Family History: States: Unknown Family Hx - Social History Current smoker - smoking cessation education provided: No Alcohol: None Drugs: Denies - Immunization History Hx Tetanus Toxoid Vaccination: No Hx Influenza Vaccination: No Hx Pneumococcal Vaccination: No - Home Medications Home Medications: Ambulatory Orders Medication Instructions Recorded Montelukast Sodium [Singulair] 10 mg PO DAILY #20 tab 02/28/13 predniSONE [predniSONE Tab] 20 mg PO BID #10 tab 02/28/13 Naproxen [Naprosyn Tab] 375 mg PO Q8 PRN #15 tab 04/15/16 oxyCODONE/Acetaminophen [Percocet 1 ea PO Q6 PRN #4 tab 04/15/16 5/325 mg Tab] Nitrofurantoin Macrocrystals 100 mg PO BID #13 cap 05/17/16 [Macrobid] Phenazopyridine [Pyridium] 200 mg PO TID #5 tab 05/17/16 Cyclobenzaprine [Cyclobenzaprine 10 mg PO Q8H PRN #12 tab 01/08/17 HCl] Ibuprofen [Motrin Tab] 800 mg PO Q6H PRN #20 tab 08/14/17 Dicyclomine [Dicyclomine HCl] 10 mg PO TID PRN #15 cap 02/25/17 Amoxicillin [Amoxil 500 mg Cap] 500 mg PO Q8 5 Days #15 cap 10/14/17 Benzonatate [Tessalon Perle] 100 mg PO TID PRN #15 capsule 02/07/18 Ibuprofen [Ibu] 400 mg PO Q4 PRN #20 tablet 08/26/18 - Allergies Allergies/Adverse Reactions: Allergies Allergy/AdvReac Type Severity Reaction Status Date / Time pollen extracts Allergy ITCHING Verified 09/18/18 16:22 Review of Systems ROS Statement: Except As Marked, All Systems Reviewed And Found Negative ENT: Positive for: Other (foriegn body sensation in neck / throat; no bleeding from throat) Respiratory: Negative for: Shortness of Breath Physical Exam - Reviewed Nursing Documentation Reviewed: Yes Vital Signs Reviewed: Yes - Physical Exam Appears: Positive for: Well, Non-toxic, No Acute Distress Head Exam: Positive for: ATRAUMATIC, NORMAL INSPECTION, NORMOCEPHALIC Skin: Positive for: Normal Color, Warm, Dry Eye Exam: Positive for: Normal appearance, EOMI, PERRL ENT: Positive for: Normal ENT Inspection, Pharynx Is (clear, no obvious foriegn body visualized). Negative for: Pharyngeal Erythema, Tonsillar Exudate, Tonsillar Swelling Neck: Positive for: Normal, Painless ROM, Supple Cardiovascular/Chest: Positive for: Regular Rate, Rhythm Respiratory: Positive for: Normal Breath Sounds. Negative for: Accessory Muscle Use, Stridor, Respiratory Distress Neurological/Psych: Positive for: Awake, Alert, Oriented (x3). Negative for: Motor/Sensory Deficits - ECG O2 Sat by Pulse Oximetry: 98 (RA) Pulse Ox Interpretation: Normal Medical Decision Making Medical Decision Making: Time: 1723 Initial Impression: r/o foreign body in neck Initial Plan: --Soft tissue neck XR 180 Additional orders: --CT soft neck --CXR Scribe Attestation: Documented by Raegan Carroll, acting as a scribe for Pavel Delgado MD. Provider Scribe Attestation: All medical record entries made by the Scribe were at my direction and personally dictated by me. I have reviewed the chart and agree that the record accurately reflects my personal performance of the history, physical exam, medical decision making, and the department course for this patient. I have also personally directed, reviewed, and agree with the discharge instructions and disposition. Disposition - Clinical Impression Clinical Impression: Foreign body - Patient ED Disposition Is Patient to be Admitted: Transfer of Care - Disposition Disposition: Transfer of Care Disposition Time: 19:00 Condition: FAIR Forms: [employer] (North Korean) Patient Signed Over To: Darius Judd (Bedside rounds pending CT neck and reeval)
--- NOTE | 2018-09-18 18:38 | RAD ---
Date of service: 09/18/2018 PROCEDURE: CHEST RADIOGRAPH, 1 VIEW HISTORY: foreign body COMPARISON: None available. FINDINGS: LUNGS: The lungs are well inflated and clear. PLEURA: No pneumothorax or pleural effusion. CARDIOVASCULAR: The heart is normal in size. No aortic atherosclerotic calcifications present. OSSEOUS STRUCTURES: Within normal limits for the patient's age. VISUALIZED UPPER ABDOMEN: The bowel gas pattern is nonobstructive. No free intraperitoneal air. OTHER FINDINGS: No evidence of radiopaque foreign body. IMPRESSION: No evidence of radiopaque foreign body in the chest or abdomen.
--- NOTE | 2018-09-18 18:40 | RAD ---
Date of service: 09/18/2018 PROCEDURE: Radiograph of soft tissue neck INDICATION: Evaluate for foreign body COMPARISON: None. FINDINGS: AP and lateral views of the neck were obtained utilizing soft tissue technique. There is no evidence for radiopaque foreign body. The prevertebral soft tissues are not widened. The soft tissues are unremarkable including the epiglottis, aryepiglottic folds and subglottic airway. The visualized bones are within normal limits for the patient's age. IMPRESSION: No evidence for radiopaque foreign body.
[2018-09-18 20:01] VITALS: BP 121/74; PULSE 76; TEMP 98.3; O2SAT 98
--- NOTE | 2018-09-18 20:01 | ED PDOC ---
- ECG O2 Sat by Pulse Oximetry: 98 (RA) Pulse Ox Interpretation: Normal Medical Decision Making Medical Decision MakinPM Patient endorsed to me by Dr. Delgado pending CT reports. 745PM EXAM: CT Neck without Intravenous Contrast. CLINICAL HISTORY: Foreign body. Pt c/o left side neck pain TECHNIQUE: Axial computed tomography images of the neck without intravenous contrast. Sagittal and coronal reformatted images were generated. 262.81 mGy-cm CONTRAST: Without COMPARISON: None provided. FINDINGS: PHARYNX: Unremarkable appearance of the nasopharynx, oropharyx, and hypopharynx. No pharyngeal mucosal based mass lesions. LARYNX: The larynx is unremarkable. The epiglottis appears normal. RETROPHARYNGEAL SPACE: The retropharyngeal soft tissues appear within normal limits. SALIVARY GLANDS: No salivary gland abnormality evident. Unremarkable appearance of the parotid, submandibular, and sublingual glands. LYMPH NODES: No significant lymphadenopathy. THYROID: Small cyst measuring approximately 9 x 6 mm arising from the right lobe of the thyroid gland may be present. There is no definite foreign body identified. BONES: No aggressive appearing osseous lesion. No acute osseous abnormality. IMPRESSION: No suspicious mass or lymphadenopathy. Small cyst measuring approximately 9 x 6 mm may be present at the right lobe of the thyroid gland. Ultrasound correlation is suggested. If symptoms persist correlation with a dedicated contrast-enhanced CT examination neck recommended. Electronically signed on Sep 18, 2018 7:17:10 PM EDT by: Ortiz Oliver M.D., Certified by [facility], Diagnostic Radiology Patient re-evaluated, well appearing, speaking full sentences, no respiratory distress. Advised patient to take NSAIDs for continued pain, followup with ENT if pain persists beyond 48 hours Advised patient of finding on CT of thyroid nodule, advised her to followup with Dr. Radha Cage, her PMD Disposition - Clinical Impression Clinical Impression: Foreign body, Throat pain - POA Present On Arrival: None - Disposition Referrals: Moreno Leach MD [Staff Provider] - Disposition: Routine/Home Disposition Time: 20:01 Condition: GOOD Prescriptions: Ibuprofen [Motrin Tab] 600 mg PO Q6 #30 tab Instructions: Foreign Body, Swallowed, Adult Forms: [employer] (Ukrainian)
--- NOTE | 2018-09-19 15:32 | CT ---
Date of service: 09/18/2018 PROCEDURE: CT NECK WITHOUT CONTRAST HISTORY: foreign body COMPARISON: None available. TECHNIQUE: CT of the neck without intravenous contrast. Coronal and sagittal reformats generated. Radiation dose: Total exam DLP = 262.81 mGy-cm. This CT exam was performed using one or more of the following dose reduction techniques: Automated exposure control, adjustment of the mA and/or kV according to patient size, and/or use of iterative reconstruction technique. FINDINGS: No retained radiodense foreign body is identified within the supra or infrahyoid neck soft tissues or at the thoracic inlet. NASOPHARYNX: Unremarkable. SUPRAHYOID NECK: Unremarkable oropharynx, oral cavity, parapharyngeal space and retropharyngeal space. INFRAHYOID NECK: Unremarkable larynx, hypopharynx, and supraglottic space. Vocal cords intact. MASS: None definitively shown. GLANDS: Parotid and submandibular glands unremarkable. Normal size thyroid gland, with small 9 mm lucency at the right lobe mid to inferior pole suspicious for cyst or possible nodule. LYMPH NODES: Normal. No lymphadenopathy. CERVICAL SPINE: No fracture or focal lesion. OTHER FINDINGS: None. IMPRESSION: No retained radiodense foreign body appreciated in the supra or infrahyoid neck or at the thoracic inlet. Clinically correlate further. 9 mm lucency in the right thyroid lobe requires follow-up thyroid ultrasound on elective basis as this may represent a cyst or lucent solid nodule. Concordant preliminary report from [facility], 09/18/2018, 7:17 p.m.
== END 2018-09-18 19:58 | disposition home or self-care (01) ==
LOC: H.ER 16:03
DX: Z03.89 Encounter for observation for other suspected diseases and conditions ruled out (principal); R07.0 Pain in throat

== ENCOUNTER 2018-09-30 08:56 | Emergency (ER) | payer MEDICAID ==
[2018-09-30 08:59] VITALS: BP 125/83; PULSE 71; RESP 16; TEMP 98.4; O2SAT 97; BMI 29.0
[2018-09-30] MEDS ORDERED: Tetracaine 0.5% Ophth 2 ML BOTTLE OD ONE (09:39)
[2018-09-30] MEDS ORDERED: Fluorescein 1 mg Ophthalmic Strip ONE (09:41)
[2018-09-30] MEDS ORDERED: Tetracaine 0.5% Ophth 2 ML BOTTLE ONE (09:41)
[2018-09-30] MEDS ORDERED: Fluorescein 1 mg Ophthalmic Strip OD STA (09:42)
--- NOTE | 2018-09-30 10:05 | ED PDOC ---
HPI: Eye Injury/Pain Time Seen by Provider: 09/30/18 09:33 Chief Complaint (Nursing): Eye Problem Additional Complaint(s): 22 y/o F with No PMHx presents to ED c/o R eye swelling and redness. Pt reports feeling some R eye discomfort last night, and this morning pt had R eye swelling and redness, associated with small amount of R eye white/yellowish discharge. Pt reports hitting her R eye while putting make-up. No symptoms on L eye. No head trauma. Pt denies fever, chills, chest pain, SOB, abdominal pain, N/V/D. PMD: Dr Ivy Allergy: dust and pollen Meds: none PMHx: denied PSHx: denied SHx: No smoking, alcohol or rec drugs. Past Medical History Vital Signs: Last Vital Signs Temp 98.4 F 09/30/18 08:57 Pulse 71 09/30/18 08:57 Resp 16 09/30/18 08:57 BP 125/83 09/30/18 08:57 Pulse Ox 97 09/30/18 08:57 Primary Care Provider: Radha Irby - Medical History PMH: Asthma Denies: Diabetes, Hepatitis, HIV, HTN, Chronic Kidney Disease, Seizures, Sexually Transmitted Disease - Surgical History Surgical History: Appendectomy - Family History Family History: States: Unknown Family Hx - Immunization History Hx Tetanus Toxoid Vaccination: No Hx Influenza Vaccination: No Hx Pneumococcal Vaccination: No - Home Medications Home Medications: Ambulatory Orders Medication Instructions Recorded Montelukast Sodium [Singulair] 10 mg PO DAILY #20 tab 02/28/13 predniSONE [predniSONE Tab] 20 mg PO BID #10 tab 02/28/13 Naproxen [Naprosyn Tab] 375 mg PO Q8 PRN #15 tab 04/15/16 oxyCODONE/Acetaminophen [Percocet 1 ea PO Q6 PRN #4 tab 04/15/16 5/325 mg Tab] Nitrofurantoin Macrocrystals 100 mg PO BID #13 cap 05/17/16 [Macrobid] Phenazopyridine [Pyridium] 200 mg PO TID #5 tab 05/17/16 Cyclobenzaprine [Cyclobenzaprine 10 mg PO Q8H PRN #12 tab 01/08/17 HCl] Ibuprofen [Motrin Tab] 800 mg PO Q6H PRN #20 tab 01/08/17 Dicyclomine [Dicyclomine HCl] 10 mg PO TID PRN #15 cap 02/25/17 Amoxicillin [Amoxil 500 mg Cap] 500 mg PO Q8 5 Days #15 cap 10/14/17 Benzonatate [Tessalon Perle] 100 mg PO TID PRN #15 capsule 02/07/18 Ibuprofen [Ibu] 400 mg PO Q4 PRN #20 tablet 08/26/18 Ibuprofen [Motrin Tab] 600 mg PO Q6 #30 tab 09/18/18 Tobramycin 0.3% [Tobrex 0.3% Ophth 1 drop OD QID #1 bottle 09/30/18 Soln] - Allergies Allergies/Adverse Reactions: Allergies Allergy/AdvReac Type Severity Reaction Status Date / Time pollen extracts Allergy ITCHING Verified 09/30/18 09:16 Review of Systems Constitutional: Negative for: Fever, Chills Eyes: Positive for: Pain, Conjunctivae Inflammation, Redness ENT: Negative for: Nose Congestion, Mouth Pain Respiratory: Negative for: Cough, Shortness of Breath, SOB with Exertion, Wheezing Gastrointestinal: Negative for: Nausea, Vomiting, Abdominal Pain, Diarrhea Genitourinary Female: Negative for: Dysuria Skin: Negative for: Rash, Lesions, Jaundice Physical Exam - Physical Exam Appears: Positive for: No Acute Distress Head Exam: Positive for: ATRAUMATIC, NORMAL INSPECTION, NORMOCEPHALIC Skin: Positive for: Normal Color, Warm, Dry Eye Exam: Positive for: EOMI, PERRL, Periorbital swelling (mild on R eye.), Conjunctival injection (On R eye, upper and lower conjunctiva). Negative for: Scleral icterus ENT: Positive for: TM Is/Are (normal). Negative for: Nasal Congestion, Pharyngeal Erythema Neck: Positive for: Normal, Painless ROM, Supple Cardiovascular/Chest: Positive for: Regular Rate, Rhythm Respiratory: Positive for: Normal Breath Sounds Extremity: Positive for: Normal ROM. Negative for: Tenderness, Pedal Edema, Calf Tenderness - ECG O2 Sat by Pulse Oximetry: 97 Medical Decision Making Medical Decision Makin:00 --Fluoroscein test performed. No abrasion or lesion seen on fluorescent light examination of R eye. 11:00 --Pt stable for discharge. --Topical opthalmic soln prescribed --F/U with PCP within 1 week. Disposition - Clinical Impression Clinical Impression: Conjunctivitis Counseled Patient/Family Regarding: Diagnosis - Disposition Referrals: Varun Duff MD [Staff Provider] - Disposition: Routine/Home Disposition Time: 11:01 Condition: IMPROVED Additional Instructions: follow up with the opthalmologist in one week keep hands clean and maintain good hand hygiene return to the ED with any worsening or concerning symptoms Prescriptions: Tobramycin 0.3% [Tobrex 0.3% Ophth Soln] 1 drop OD QID #1 bottle Instructions: Conjunctivitis ([place]) (DC) Forms: [employer] (Chinese), [facility] ED School/Work Excuse
== END 2018-09-30 10:35 | disposition home or self-care (01) ==
LOC: H.ER 08:56
DX: H10.9 Unspecified conjunctivitis (principal); J45.909 Unspecified asthma, uncomplicated

== ENCOUNTER 2018-10-03 16:12 | Emergency (ER) | payer MEDICAID ==
[2018-10-03 16:13] VITALS: BMI 29.0
[2018-10-03 16:16] VITALS: BP 116/81; PULSE 78; RESP 20; TEMP 97.9; O2SAT 98
--- NOTE | 2018-10-03 16:51 | ED PDOC ---
HPI: CCC, URI, Sore Throat Time Seen by Provider: 10/03/18 16:18 Chief Complaint (Nursing): ENT Problem Chief Complaint (Provider): Nasal Congestion, Left Ear Pain, Throat Pain History Per: Patient History/Exam Limitations: no limitations Onset/Duration Of Symptoms: Days Sick Contacts (Context): Family Member(s) Additional Complaint(s): 22 year old female with no significant medical history presents to ED with nasal congestion, left ear pain, throat pain, occasional cough x2 days. Patient was seen here x3 days for eye infection and was given antibiotic drops to use. Her symptoms started after she was seen, with both her mother and sister sick at home with similar symptoms but patient's illness is more severe. She started taking Ibuprofen x2 days and also took it this morning. Patient wants to get checked out because she is flying back to her [place] [facility] in a week and was unable to see her PMD here. She denies any fever, difficulty swallowing or breathing, chest pain. LNMP ended yesterday. PMD: Radha Irby Past Medical History Reviewed: Historical Data, Nursing Documentation, Vital Signs Vital Signs: Last Vital Signs Temp 97.9 F 10/03/18 16:14 Pulse 78 10/03/18 16:14 Resp 20 10/03/18 16:14 BP 116/81 10/03/18 16:14 Pulse Ox 98 10/03/18 16:14 Primary Care Provider: FAMILY PROVIDER,NO - Medical History PMH: Asthma Denies: Diabetes, Hepatitis, HIV, HTN, Chronic Kidney Disease, Seizures, Sexually Transmitted Disease - Surgical History Surgical History: Appendectomy - Family History Family History: States: Unknown Family Hx - Immunization History Hx Tetanus Toxoid Vaccination: No Hx Influenza Vaccination: No Hx Pneumococcal Vaccination: No - Home Medications Home Medications: Ambulatory Orders Medication Instructions Recorded Montelukast Sodium [Singulair] 10 mg PO DAILY #20 tab 02/28/13 predniSONE [predniSONE Tab] 20 mg PO BID #10 tab 02/28/13 Naproxen [Naprosyn Tab] 375 mg PO Q8 PRN #15 tab 04/15/16 oxyCODONE/Acetaminophen [Percocet 1 ea PO Q6 PRN #4 tab 04/15/16 5/325 mg Tab] Nitrofurantoin Macrocrystals 100 mg PO BID #13 cap 05/17/16 [Macrobid] Phenazopyridine [Pyridium] 200 mg PO TID #5 tab 05/17/16 Cyclobenzaprine [Cyclobenzaprine 10 mg PO Q8H PRN #12 tab 01/08/17 HCl] Ibuprofen [Motrin Tab] 800 mg PO Q6H PRN #20 tab 01/08/17 Dicyclomine [Dicyclomine HCl] 10 mg PO TID PRN #15 cap 02/25/17 Amoxicillin [Amoxil 500 mg Cap] 500 mg PO Q8 5 Days #15 cap 10/14/17 Benzonatate [Tessalon Perle] 100 mg PO TID PRN #15 capsule 02/07/18 Ibuprofen [Ibu] 400 mg PO Q4 PRN #20 tablet 08/26/18 Ibuprofen [Motrin Tab] 600 mg PO Q6 #30 tab 09/18/18 Tobramycin 0.3% [Tobrex 0.3% Ophth 1 drop OD QID #1 bottle 09/30/18 Soln] Amoxicillin 500 mg PO BID 10 Days #20 tablet 10/03/18 Ibuprofen [Motrin Tab] 600 mg PO Q6 PRN #20 tab 10/03/18 Pseudoephedrine HCl [Sudafed 120 mg PO BID #12 tablet.er 10/03/18 12-Hour] - Allergies Allergies/Adverse Reactions: Allergies Allergy/AdvReac Type Severity Reaction Status Date / Time pollen extracts Allergy ITCHING Verified 10/03/18 16:13 Review of Systems ROS Statement: Except As Marked, All Systems Reviewed And Found Negative Constitutional: Negative for: Fever Eyes: Positive for: Other (infection x3 days) ENT: Positive for: Ear Pain (left), Throat Pain, Other (no difficulty swallowing) Cardiovascular: Negative for: Chest Pain Respiratory: Positive for: Cough (occasional). Negative for: Shortness of Breath Physical Exam - Reviewed Nursing Documentation Reviewed: Yes Vital Signs Reviewed: Yes - Physical Exam Comments: GENERAL APPEARANCE: Patient is awake, alert, oriented x 3, in no acute distress. SKIN: Warm, dry; (-) cyanosis. EYES: (+) PERRL, (+) right conjunctival injection, mucus in middle of eye. ENMT: Mucous membranes moist. Audible nasal congestion. Airway patent: (-) stridor. Pharynx: (-) swelling, (-) erythema, (-) exudate. Ears: fluid behind bilateral TMs. Throat: mild tonsillar inflammation, (+) diffuse erythema, (-) exudate, (-) deviation, (-) airway obstruction NECK: (-) tenderness, (-) stiffness, (+) bilateral anterior cervical lymphadenopathy. CHEST AND RESPIRATORY: (-) rhonchi, (-) rales, (-) wheezes, (-) pleural rub; breath sounds equal bilaterally, occasional dry cough, mildly tender lungs. HEART AND CARDIOVASCULAR: (-) irregularity; (-) murmur, (-) gallop. ABDOMEN AND GI: Soft; (-) tenderness. EXTREMITIES: (-) deformity; (-) edema. NEURO AND PSYCH: Mental status as above. Cranial nerves grossly intact; strength symmetric. - ECG O2 Sat by Pulse Oximetry: 98 (RA) Pulse Ox Interpretation: Normal Medical Decision Making Medical Decision Making: Time: 1640 Initial Plan: --Flu and Strep --Sudafed --Ibuprofen pt strep positive, well appearing, VSS, tolerating PO discussed results, diagnosis, treatment, return precautions and f/u with pt who is understanding, in agreement and stable for dc Scribe Attestation: Documented by Star Moses acting as a scribe for Piyush Mondragon PA-C. Provider Scribe Attestation: All medical record entries made by the Scribe were at my direction and personally dictated by me. I have reviewed the chart and agree that the record accurately reflects my personal performance of the history, physical exam, medical decision making, and the department course for this patient. I have also personally directed, reviewed, and agree with the discharge instructions and disposition. Disposition - Clinical Impression Clinical Impression: Strep pharyngitis - Patient ED Disposition Is Patient to be Admitted: No Counseled Patient/Family Regarding: Studies Performed, Diagnosis, Need For Followup, Rx Given - Disposition Referrals: your, doctor [Other] Disposition: Routine/Home Disposition Time: 18:28 Condition: STABLE Additional Instructions: Thank you for letting us take care of you today. The emergency medical care you received today was directed at your acute symptoms. If you were prescribed any medication, please fill it and take as directed. Take antibiotics as prescribed until finished. Alternate between tylenol and iBuprofen for fever and pain. Rest, drink plenty of fluids to stay hydrated, hot and cold to soothe throat (hot tea with honey). It may take several days for your symptoms to resolve. Return to the Emergency Department if your symptoms worsen, do not improve, or if you have any other problems. Please contact your doctor in 2 days for re-evaluation and follow up / or call one of the physicians/clinics you have been referred to that are listed on the Patient Visit Information form that is included in your discharge packet. Bring any paperwork you were given at discharge with you along with any medications you are taking to your follow up visit. Our treatment cannot replace ongoing medical care by a primary care provider (PCP) outside of the emergency department. Prescriptions: Amoxicillin 500 mg PO BID 10 Days #20 tablet Ibuprofen [Motrin Tab] 600 mg PO Q6 PRN #20 tab PRN Reason: pain and/or fever >100.4 Pseudoephedrine HCl [Sudafed 12-Hour] 120 mg PO BID #12 tablet.er Instructions: Sore Throat in Adults Forms: [employer] (Djiboutian) Print Language: MAORI - POA Present On Arrival: None
== END 2018-10-03 18:44 | disposition home or self-care (01) ==
LOC: H.ER 16:12
DX: J02.0 Streptococcal pharyngitis (principal)

== ENCOUNTER 2018-10-10 12:27 | Emergency (ER) | payer MEDICAID ==
[2018-10-10 12:27] VITALS: BMI 29.0
[2018-10-10] MEDS ORDERED: Naproxen 500 MG TAB PO STA (14:02)
--- NOTE | 2018-10-10 14:29 | ED PDOC ---
HPI: CCC, URI, Sore Throat Time Seen by Provider: 10/10/18 13:45 Chief Complaint (Nursing): ENT Problem Chief Complaint (Provider): Left ear pain History Per: Patient History/Exam Limitations: no limitations Onset/Duration Of Symptoms: Days Current Symptoms Are (Timing): Still Present Sick Contacts (Context): None Additional Complaint(s): 22 y/o female presents to the ER for evaluation of left ear pain for the last few days. She states she went to her PMD yesterday who did not have time to examine her but gave her 2 prescriptions, 1 for ear drops and 1 for Azithromycin, which she started taking yesterday without relief. She reports she has taken one dose of antibiotics so far. Patient states due to her symptoms continuing, she came to the ER for evaluation. She states her ear canal is also itchy. She denies fever, chills, headache, dizziness, ear drainage, throat pain, cough, SOB, changes in hearing, nausea, or vomiting. LMP was 2 weeks ago. PMD: Gary Zepeda Past Medical History Reviewed: Historical Data, Nursing Documentation, Vital Signs Vital Signs: Last Vital Signs Temp 98.2 F 10/10/18 12:49 Pulse 101 H 10/10/18 12:49 Resp 18 10/10/18 12:49 BP 126/88 10/10/18 12:49 Pulse Ox 97 10/10/18 12:49 Primary Care Provider: Gary Quinteros - Medical History PMH: Asthma - Surgical History Surgical History: Appendectomy Other surgeries: Jackpot teeth extraction, eye procedure - Family History Family History: States: Unknown Family Hx - Home Medications Home Medications: Ambulatory Orders Medication Instructions Recorded Montelukast Sodium [Singulair] 10 mg PO DAILY #20 tab 02/28/13 predniSONE [predniSONE Tab] 20 mg PO BID #10 tab 02/28/13 Naproxen [Naprosyn Tab] 375 mg PO Q8 PRN #15 tab 04/15/16 oxyCODONE/Acetaminophen [Percocet 1 ea PO Q6 PRN #4 tab 04/15/16 5/325 mg Tab] Nitrofurantoin Macrocrystals 100 mg PO BID #13 cap 05/17/16 [Macrobid] Phenazopyridine [Pyridium] 200 mg PO TID #5 tab 05/17/16 Cyclobenzaprine [Cyclobenzaprine 10 mg PO Q8H PRN #12 tab 01/08/17 HCl] Ibuprofen [Motrin Tab] 800 mg PO Q6H PRN #20 tab 01/08/17 Dicyclomine [Dicyclomine HCl] 10 mg PO TID PRN #15 cap 02/25/17 Amoxicillin [Amoxil 500 mg Cap] 500 mg PO Q8 5 Days #15 cap 10/14/17 Benzonatate [Tessalon Perle] 100 mg PO TID PRN #15 capsule 02/07/18 Ibuprofen [Ibu] 400 mg PO Q4 PRN #20 tablet 08/26/18 Ibuprofen [Motrin Tab] 600 mg PO Q6 #30 tab 09/18/18 Tobramycin 0.3% [Tobrex 0.3% Ophth 1 drop OD QID #1 bottle 09/30/18 Soln] Amoxicillin 500 mg PO BID 10 Days #20 tablet 10/03/18 Ibuprofen [Motrin Tab] 600 mg PO Q6 PRN #20 tab 10/03/18 Pseudoephedrine HCl [Sudafed 120 mg PO BID #12 tablet.er 10/03/18 12-Hour] Acetaminophen [Acetaminophen 8 650 mg PO Q8 PRN #21 tablet.er 10/10/18 Hour] Naproxen 500 mg PO BID PRN #20 tab 10/10/18 - Allergies Allergies/Adverse Reactions: Allergies Allergy/AdvReac Type Severity Reaction Status Date / Time pollen extracts Allergy ITCHING Verified 10/10/18 12:49 Review of Systems ROS Statement: Except As Marked, All Systems Reviewed And Found Negative Constitutional: Negative for: Fever, Chills ENT: Positive for: Ear Pain (left), Other (Itchy ear canal). Negative for: Ear Discharge, Throat Pain Respiratory: Negative for: Cough, Shortness of Breath Gastrointestinal: Negative for: Nausea, Vomiting Neurological: Negative for: Headache, Dizziness Physical Exam - Reviewed Nursing Documentation Reviewed: Yes Vital Signs Reviewed: Yes - Physical Exam Comments: GENERAL APPEARANCE: Patient is awake, alert, oriented x 3, in no acute distress. Resting comfortably. SKIN: Warm, dry; (-) cyanosis. ENMT: Left Ear: Canal: unremarkable, (-) erythema, (-) vesicles, (-) exudate. L TM: (+) bulging and (+) erythema. Right Ear: TM and canal unremarkable. Nares patent, (-) rhinorrhea. (-) sinus tenderness. Pharynx: Uvula midline, (-) erythema, (-) exudate. Mucus membranes moist. Airway patent, (-) stridor. NECK: Supple, FROM (-) stiffness, (-) tenderness, (-) lymphadenopathy. LUNGS: clear to auscultation (-) rales, (-) wheezing, (-) rhonchi. Speaking in full sentences, respirations even and nonlabored. CARDIAC: RRR NEURO: Mental status as above. Gait: steady. Speech: clear. (-) facial asymmetry. Normal cognition. - ECG O2 Sat by Pulse Oximetry: 97 (RA) Pulse Ox Interpretation: Normal Medical Decision Making Medical Decision Making: Initial Impression: otitis media of the left ear Initial Plan: --Naproxen 500mg PO --Re-evaluation --Patient advised to continue taking prescribed medications from PMD. 1445 Repeat HR: 88 On re-evaluation, patient reports improvement of symptoms. On exam, patient remains AAOx3, in no acute distress. VSS, stable for discharge. Lab/Diagnostic results d/w the patient in great detail. Diagnosis of otalgia and otitis media of left ear d/w the patient. Based on history, exam and diagnostic results, plan will be for outpatient follow up with PMD/ENT. Patient instructed to follow-up with pmd / referral provided / the clinic in 1- 2 days without fail. Advised to take medication as prescribed. Return to the emergency room at any time for any new or worsening symptoms. Patient states she fully agrees with and understands discharge instructions. States that she agrees with the plan and disposition. Verbalized and repeated discharge instructions and plan. I have given the patient opportunity to ask any additional questions. Scribe Attestation: Documented by Andrew Ferro acting as a scribe for Rhianna GONZALEZ. Provider Scribe Attestation: All medical record entries made by the Scribe were at my direction and personally dictated by me. I have reviewed the chart and agree that the record accurately reflects my personal performance of the history, physical exam, medical decision making, and the department course for this patient. I have also personally directed, reviewed, and agree with the discharge instructions and disposition. Disposition - Clinical Impression Clinical Impression: Left ear pain, Otitis media - Patient ED Disposition Is Patient to be Admitted: No Counseled Patient/Family Regarding: Studies Performed, Diagnosis, Need For Followup, Rx Given - Disposition Referrals: Moreno Leach MD [Staff Provider] - Gary Quinteros [Medical Doctor] - Disposition: Routine/Home Disposition Time: 14:45 Condition: STABLE Additional Instructions: CONTINUE MEDICATIONS PRESCRIBED FROM PRIMARY DOCTOR IN CONJUNCTION WITH PAIN MEDICATIONS PRESCRIBED IN ED. The emergency medical care you received today was directed at your acute symptoms. If you were prescribed any medication, please fill it and take as directed. It may take several days for your symptoms to resolve. Return to the Emergency Department if your symptoms worsen, do not improve, or if you have any other problems. Please contact your doctor in 2 days for re-evaluation and follow up / or call one of the physicians/clinics you have been referred to that are listed on the Patient Visit Information form that is included in your discharge packet. Bring any paperwork you were given at discharge with you along with any medications you are taking to your follow up visit. Our treatment cannot replace ongoing medical care by a primary care provider (PCP) outside of the emergency department. Prescriptions: Acetaminophen [Acetaminophen 8 Hour] 650 mg PO Q8 PRN #21 tablet.er PRN Reason: Pain, Moderate (4-7) Naproxen 500 mg PO BID PRN #20 tab PRN Reason: Pain, Moderate (4-7) Instructions: Ear Infections (Otitis Media) Forms: [employer] (Italian) Print Language: LAO - POA Present On Arrival: None
[2018-10-10] MEDS ORDERED: Naproxen 500 MG TAB PO ONE (14:58)
[2018-10-10 15:24] VITALS: BP 124/78; PULSE 88; RESP 16; TEMP 98.8
[2018-10-10 19:16] VITALS: O2SAT 97
== END 2018-10-10 15:27 | disposition home or self-care (01) ==
LOC: H.ER 12:27
DX: H66.92 Otitis media, unspecified, left ear (principal)